=== PATIENT | female | born 1950 | race Caucasian/White ===

== ENCOUNTER 2022-03-01 02:49 | Inpatient (IN) ==
[2022-03-01] MEDS ORDERED: DILTIAZEM 25 MG/5 ML VIAL IV ONE ×2 (03:11→03:53)
[2022-03-01] MEDS ORDERED: LACTATED RINGERS 1,000 ML IV ONE (03:13)
--- NOTE | 2022-03-01 04:00 | XRay Report ---
CLINICAL INFORMATION: Chest pain COMPARISON: 10/20/2020 TECHNIQUE: Portable FINDINGS: The heart size, mediastinum and pulmonary vessels are unremarkable. The lungs are clear. There are no effusions. Moderate right diaphragm elevation is stable The bones and soft tissues are within normal limits. IMPRESSION: Chronic stable right diaphragm elevation. No acute disease Interpreted and Authenticated by: Lamine Arenas 03/01/22
[2022-03-01 04:21] LABS: Basophils # (Auto) 0.04 K/mcL (0.00-0.30); Basophils % (Auto) 0.3 % (0.0-2.0); Eosinophils # (Auto) 0.17 K/mcL (0.00-0.70); Eosinophils % (Auto) 1.4 % (0.0-7.0); Hematocrit 37.4 % (34.1-44.9); Hemoglobin 13.2 g/dL (11.2-15.7); Lymphocytes # (Auto) 2.38 K/mcL (1.50-4.80); Lymphocytes % (Auto) 19.5 % (15.5-49.0); Mean Cell Volume 91.7 fL (80.0-100.0); Mean Corpuscular HGB Conc 35.3 g/dL (31.0-36.0); Mean Platelet Volume 12.2 fL (7.4-10.4); Monocytes # (Auto) 1.02 K/mcL (0.10-0.90); Monocytes % (Auto) 8.3 % (1.0-12.0); Neutrophils % (Auto) 70.5 % (38.0-78.0); Platelet Count 240 K/mcL (140-440); RBC 4.08 M/mcL (3.59-5.38); Red Cell Distribution Width 11.8 % (11.5-14.5); WBC 12.2 K/mcL (4.5-11.0)
[2022-03-01] MEDS ORDERED: DILTIAZEM 125 MG in DEXTROSE 5% IN WATER 100 ML IV SCH (04:30)
[2022-03-01 04:42] LABS: ALT/SGPT 30 U/L (<40); AST/SGOT 21 U/L (<32); Albumin 4.6 gm/dL (3.2-5.2); Albumin/Globulin Ratio 1.5 (1.0-2.3); Alkaline Phosphatase 111 U/L (39-117); Bilirubin,Total 0.7 mg/dL (0.1-1.0); Blood Urea Nitrogen 15 mg/dL (8-23); Calcium 10.6 mg/dL (8.6-10.4); Carbon Dioxide 24 mmol/L (22-30); Chloride 92 mmol/L (96-108); Globulin 3.1 gm/dL (2.2-3.7); Glomerular Filtration Rate 86; Glucose 207 mg/dL (70-105)
--- NOTE | 2022-03-01 06:25 | Emergency Department Note ---
Arrhythmia/Palpitations HPI General Chief Complaint: Arrhythmia/Palpitations Stated Complaint: tachycardia Time Seen by Provider: 03/01/22 02:54 Source: patient Mode of arrival: ambulatory Limitations: no limitations History of Present Illness HPI Narrative: Narrative: 72-year-old female with a history of coronary artery disease status post 3 stents in the past, mild mitral valve prolapse, hypertension, diabetes, hyperlipidemia presenting to the ED with onset of palpitations that started earlier this evening. Noticed on her watch that her heart rate was around 150s 160s. Associated with slight chest discomfort no shortness of breath. She has what sounds like 1 or 2 episodes of paroxysmal A. fib many years ago, none since. She is not on any type of anticoagulation or rate control medication. No history of DVT or PE no recent medication changes, no recent travel, surgery, immobilization or leg swelling. Of note she is scheduled to undergo a elective cholecystectomy later today with Dr. Deleon due to what sounds like biliary colic. She has been n.p.o. since earlier tonight. Is admittedly mildly anxious in regards to this upcoming procedure. No history of thyroid disease, no other complaints Related Data Home Medications Medication Instructions Recorded Confirmed Leg Cramp med 1 tab PO ONCE PRN 09/30/17 02/25/22 vitamin B complex (B See Rx Instructions PO QDAY 05/14/18 02/25/22 Complex-Vitamin B12) aspirin 81 mg tablet,delayed 81 mg PO QDAY 11/18/18 02/25/22 release nitroglycerin 0.4 mg sublingual 0.4 mg SUBLINGUAL Q5-15M PRN 11/18/18 02/25/22 tablet amlodipine 5 mg tablet 5 mg PO QPM tab 12/07/18 02/25/22 vitamin E (dl, acetate) 180 mg See Rx Instructions PO BID cap 12/07/18 02/25/22 (400 unit) capsule cholecalciferol (vitamin D3) 50 50 mcg PO QDAY cap 03/21/20 02/25/22 mcg (2,000 unit) capsule diphenhydramine HCl 25 mg tablet 25 mg PO Q4H PRN tab 03/21/20 02/25/22 (Allergy Medicine) coenzyme Q10 1 dose PO DAILY 06/26/20 02/25/22 fish, borage, flaxseed oils-omega 1 cap PO BID cap 06/26/20 02/25/22 3,6,9 comb no.1 1,200 mg capsule atorvastatin 80 mg tablet 40 mg PO HS tab 11/21/20 02/25/22 oxygen 12/31/21 02/18/22 hydrochlorothiazide 12.5 mg tablet 12.5 mg PO QDAY 01/15/22 02/25/22 irbesartan 300 mg tablet 300 mg PO QDAY 01/15/22 02/25/22 Previous Rx's Medication Instructions Recorded epinephrine 0.3 mg/0.3 mL 0.3 mg (0.3 mL) IM ONCE PRN #2 each 11/18/18 injection, auto-injector propranolol 80 mg capsule,24 80 mg PO QDAY #90 cap 11/18/18 hr,extended release glimepiride 4 mg tablet 4 mg PO BID #180 tab 06/12/21 lancets 30 gauge (Easy Comfort #100 each 01/28/22 Lancets) Contour Next Test Strips (blood #200 each NS 01/31/22 sugar diagnostic) diazepam 5 mg tablet 5 mg PO BID PRN #60 tab 02/13/22 Allergies Allergy/AdvReac Type Severity Reaction Status Date / Time SURESH Inhibitors Allergy Severe Angioedema Verified 02/25/22 15:18 canagliflozin [From Invokana] Allergy Severe Difficulty Verified 02/25/22 15:18 Breathing egg Allergy Severe Anaphylaxis Verified 02/25/22 15:18 Penicillins Allergy Severe Anaphylaxis Verified 02/25/22 15:18 Procaine [From Novocain] Allergy Severe Anaphylaxis Verified 02/25/22 15:18 bee venom protein (honey bee) AdvReac Severe Anaphylaxis Verified 02/25/22 15:18 levofloxacin AdvReac Severe Decreased Verified 02/25/22 15:18 oxygen 60%, diarrhea, headache, dizziness cigarette smoke AdvReac Intermediate Difficulty Verified 02/25/22 15:18 Swallowing poultry Allergy Severe Anaphylaxis Uncoded 02/25/22 15:18 Metformin ER Allergy Intermediate Agitated Uncoded 02/25/22 15:18 Smoke AdvReac Intermediate Wheezing/Co Uncoded 02/18/22 13:18 ughing Review of Systems ROS ROS Narrative: Narrative: All systems ED: reviewed and negative except as stated. PFS Narrative Patient History Narrative: Narrative: Medical/Surgical/Family History All Active Problems (Updated 03/01/22 @ 06:25 by Luca Mancilla DO) Atrial fibrillation with rapid ventricular response (Acute) Nocturnal hypoxemia (Acute) Acute UTI (urinary tract infection) (Acute) Shortness of breath (Acute) Hypoxia (Acute) Recurrent biliary colic (Chronic) Medicare annual wellness visit, initial (Acute) Chest pain (Acute) Anxiety about health (Chronic) Dizziness (Acute) Diaphragmatic paresis (Chronic) Hypersomnia (Acute) Dyspnea (Chronic) Coronary artery disease (Chronic) Vitamin D deficiency, unspecified (Chronic) Other specified disorders of bone density and structure, multiple sites (Ch ronic) Patient's noncompliance with other medical treatment and regimen (Chronic) Body mass index 32.0-32.9, adult (Chronic) Generalized anxiety disorder (Chronic) Hay fever (Chronic) Kidney disease (Chronic ~1972) Anemia (Chronic ~1959) Seizures (Chronic ~1979) Back problem (Chronic ~1991) Mitral regurgitation (Chronic) Osteopenia (Chronic ~2014) Migraines (Chronic) Kidney stones (Chronic) Hyperlipidemia (Chronic) Hypertension, essential (Chronic) Mitral valve prolapse (Chronic) DMII (diabetes mellitus, type 2) (Chronic ~2012) Medical History (Updated 03/01/22 @ 06:25 by Luca Mancilla DO) Anemia (~1959) Ankle fracture, left (12/19/10) due to fall Ankle fracture, right (12/19/10) due to fall Back problem (~1991) Body mass index 32.0-32.9, adult Bronchitis (~1959) Cervical cancer Stage 2; patient declines further pelvic examination and Pap Chest pain has episodes of chest pain once every three months, radiate to left jaw and left arm; previous cardiac workup negative Improved with alprazolam Coronary artery disease Status post stenting x3 December 2017. Increase Lipitor to 80 mg daily to achieve goal LDL of less than 70 Continue baby aspirin daily Follows with cardiology. Daytime sleepiness Diaphragmatic paresis Demonstrated on fluoroscopy of diaphragm 11/13/2018. Causes right-sided scapular pain, for which she takes diazepam as needed DMII (diabetes mellitus, type 2) (~2012) Dyspnea Improved since ER visit. She has albuterol inhaler which is helpful as needed. May be related to biliary colic Encounter for general adult medical examination with abnormal findings Encounter for screening for other disorder Encounter for screening mammogram for malignant neoplasm of breast Fall (2015) Shattered left wrist Fall (12/19/10) Left ankle fracture & shattered right ankle Fracture of wrist Generalized anxiety disorder Hay fever Hives Hyperlipidemia Well-controlled on Lipitor 40 mg daily. Continue current dose. No myalgias. She is [id number] between 40 and 80 mg, so will be consistent with 40 mg and recheck lipids in 3 months. Hypersomnia Hypertension, essential Kidney disease (~1972) Kidney stones x2 in her 20s; cut dairy out of her diet, no problems since that time Left wrist fracture (2015) due to fall Measles (~1953) Medicare annual wellness visit, initial Migraines during teen years & into her 20's; now has visual changes, uses biofeedback to prevent getting to full blown migraine Mitral regurgitation mild Mitral valve prolapse diagnosed in her late 20s; associated with mild regurg Mumps (~1957) Osteopenia (~2014) Lumbar spine T score -2.5, which is on the borderline for osteoporosis. Other specified disorders of bone density and structure, multiple sites Patient's noncompliance with other medical treatment and regimen Personal history of malignant neoplasm of cervix uteri PNA (pneumonia) (~1948) Polio (~1951) Seizures (~1979) Type 2 diabetes mellitus with hyperglycemia Vitamin D deficiency, unspecified Continue vitamin D3 to 2000 units daily Surgical History History of artificial lens replacement History of open reduction and internal fixation (ORIF) procedure (~2015) 2016 Shattered left wrist; Dr. Castrejon History of open reduction and internal fixation (ORIF) procedure (12/19/10) 12/19/2010 Fractured left ankle & shattered right ankle; Dr. Yeboah Hx of cataract surgery 2007 Bilateral Hx of tonsillectomy 1961 S/P coronary artery stent placement patient stated angiogram and 3 stents placed 2018. [facility] Family History Father , from stroke at 80 years Arthritis Diabetes Hypertension, essential Stroke, Onset Age: 80 Anemia Heart disease Migraine Mother , 77 years of age, secondary to complications from AAA Arthritis Thyroid disease Aortic aneurysm Gallbladder disease Mitral valve prolapse Heart disease Brother Skin cancer Juvenile rheumatoid arthritis Coronary artery disease FH: coronary artery bypass surgery Family history of rheumatic fever Sister Arthritis Hypertension, essential Grandfather Paternal & Maternal Stroke Paternal Grandmother Paternal & Maternal Stroke Paternal Family/Other Mitral valve prolapse Sibling, unspecified History of appendectomy Sibling, unspecified Asthma Child, unspecified Migraine Child, unspecified Social History Smoking Status: Never smoker Alcohol Intake Frequency: a few times a month Substance Use: other Exam Narrative Narrative: Narrative: Constitutional: normally developed, slightly anxious Head: Normocephalic, atraumatic, Eyes: No Icterus, ENT: Slightly dry mucus membranes, Neck: Supple, Cardiac: Tachycardic irregularly irregular heart sounds, palpable radial pulses, no peripheral edema. Well perfused Pulmonary: Normal respiratory effort. Breath sounds clear, no wheeze, rhonchi, rales, Gastrointestinal: Abdomen soft, non-distended, non-tender, Musculoskeletal: No gross deformities, well perfused Skin: warm, dry Neuro: Alert and oriented. General Limitations: no limitations Course Vital Signs Vital signs: Vital Signs Temperature 36.6 C 03/01/22 02:50 Pulse Rate 148 H 03/01/22 02:50 Respiratory Rate 18 03/01/22 02:50 Blood Pressure 153/89 03/01/22 02:50 Pulse Oximetry (%) 97 03/01/22 02:50 Temperature 36.6 C 03/01/22 02:50 Pulse Rate 104 H 03/01/22 06:01 Respiratory Rate 24 H 03/01/22 03:07 Blood Pressure 133/91 03/01/22 06:01 Pulse Oximetry (%) 96 03/01/22 06:01 MDM MDM Narrative Medical decision making narrative: Narrative: 72-year-old presents in what appears to be A. fib with RVR blood pressure stable her main complaint is palpitations slight chest discomfort no significant dyspnea. Is started on IV fluids placed on library monitor work-up is obtained Twelve-lead EKG per my interpretation appears to show A. fib with RVR heart rate 156 QTC within normal no STEMI criteria, some repolarization abnormality likely rate related demand Patient is given initial 20 mg IV Cardizem for rate control CBC mild leukocytosis 12.2 Electrolytes low normal sodium and chloride 132/92 potassium is normal Troponin is negative TSH is normal Chest x-ray per my interpretation no acute findings chronically elevated right diaphragm Reevaluation initial rate control did help but heart rate is going back up was given a second bolus of Cardizem 25 mg again with initial rate control however heart rate is still returning slightly above 100 we will start her on Cardizem infusion. Will be admitted for further management On reevaluation with improved heart rate control patient feels quite well. Repeat EKG following rate control shows A. fib heart rate 84 QTc within normal, no acute ischemia noted Spoke with hospitalist who accepts admission; requested 1mg/kg Lovenox for anticoagulation, which was given. Patient agreeable to plan Critical Care Time Total CriticalCare time was 40 minutes, excluding separately reportable procedures. There was a high probability of clinically significant/life threatening deterioration in the patient's condition which required my urgent intervention. Lab Data Result diagrams: 03/01/22 03:51 03/01/22 03:51 Labs: Lab Results 03/01/22 03/01/22 03/01/22 Range/Units 03:51 03:51 03:51 WBC 12.2 H (4.5-11.0) K/mcL RBC 4.08 (3.59-5.38) M/mcL Hgb 13.2 (11.2-15.7) g/dL Hct 37.4 (34.1-44.9) % MCV 91.7 (80.0-100.0) fL MCH 32.4 (26.0-34.0) pg MCHC 35.3 (31.0-36.0) g/dL RDW 11.8 (11.5-14.5) % Plt Count 240 (140-440) K/mcL MPV 12.2 H (7.4-10.4) fL Neut % (Auto) 70.5 (38.0-78.0) % Lymph % (Auto) 19.5 (15.5-49.0) % Navarro % (Auto) 8.3 (1.0-12.0) % Eos % (Auto) 1.4 (0.0-7.0) % Baso % (Auto) 0.3 (0.0-2.0) % Lymph # (Auto) 2.38 (1.50-4.80) K/mcL Navarro # (Auto) 1.02 H (0.10-0.90) K/mcL Eos # (Auto) 0.17 (0.00-0.70) K/mcL Baso # (Auto) 0.04 (0.00-0.30) K/mcL Absolute Neutrophils 8.62 H (1.80-8.00) K/mcL Sodium 132 L (133-145) mmol/L Potassium 3.4 (3.3-5.1) mmol/L Chloride 92 L (96-108) mmol/L Carbon Dioxide 24 (22-30) mmol/L Anion Gap 16.0 (8.0-16.0) BUN 15 (8-23) mg/dL Creatinine 0.7 (0.6-1.1) mg/dL GFR Calculation 86 Glucose 207 H (70-105) mg/dL Calcium 10.6 H (8.6-10.4) mg/dL Total Bilirubin 0.7 (0.1-1.0) mg/dL AST 21 (<32) U/L ALT 30 (<40) U/L Alkaline Phosphatase 111 (39-117) U/L Troponin T < 0.01 (<0.03) ng/mL Total Protein 7.7 (5.9-8.4) gm/dL Albumin 4.6 (3.2-5.2) gm/dL Globulin 3.1 (2.2-3.7) gm/dL Albumin/Globulin Ratio 1.5 (1.0-2.3) TSH (0.27-5.01) uIU/mL 03/01/22 Range/Units 03:51 WBC (4.5-11.0) K/mcL RBC (3.59-5.38) M/mcL Hgb (11.2-15.7) g/dL Hct (34.1-44.9) % MCV (80.0-100.0) fL MCH (26.0-34.0) pg MCHC (31.0-36.0) g/dL RDW (11.5-14.5) % Plt Count (140-440) K/mcL MPV (7.4-10.4) fL Neut % (Auto) (38.0-78.0) % Lymph % (Auto) (15.5-49.0) % Navarro % (Auto) (1.0-12.0) % Eos % (Auto) (0.0-7.0) % Baso % (Auto) (0.0-2.0) % Lymph # (Auto) (1.50-4.80) K/mcL Navarro # (Auto) (0.10-0.90) K/mcL Eos # (Auto) (0.00-0.70) K/mcL Baso # (Auto) (0.00-0.30) K/mcL Absolute Neutrophils (1.80-8.00) K/mcL Sodium (133-145) mmol/L Potassium (3.3-5.1) mmol/L Chloride (96-108) mmol/L Carbon Dioxide (22-30) mmol/L Anion Gap (8.0-16.0) BUN (8-23) mg/dL Creatinine (0.6-1.1) mg/dL GFR Calculation Glucose (70-105) mg/dL Calcium (8.6-10.4) mg/dL Total Bilirubin (0.1-1.0) mg/dL AST (<32) U/L ALT (<40) U/L Alkaline Phosphatase (39-117) U/L Troponin T (<0.03) ng/mL Total Protein (5.9-8.4) gm/dL Albumin (3.2-5.2) gm/dL Globulin (2.2-3.7) gm/dL Albumin/Globulin Ratio (1.0-2.3) TSH 2.20 (0.27-5.01) uIU/mL Discharge Plan Patient/Caregiver Discharge Instructions Pt seen by SADDLE CUTTER/PA only: No Clinical Impression: Atrial fibrillation with rapid ventricular response Patient Disposition: Xfer As Inpt ([facility]) Condition: Fair Follow up with: Lamine Medeiros DO [Primary Care Provider] - Prescriptions: No Action glimepiride 4 mg tablet 4 mg PO BID Qty: 180 3RF (DME) lancets [Easy Comfort Lancets] 30 gauge misc See Dose Instructions .ROUTE .MEDSUPPLY Qty: 100 12RF Dose Instruction: As directed Rx Instructions: As directed-test sugars twice daily (DME) Contour Next Test Strips Strip See Rx Instructions .ROUTE .MEDSUPPLY Qty: 200 3RF Rx Instructions: Use to test blood sugars twice daily. diazepam 5 mg tablet 5 mg PO BID PRN (Reason: noncardiac chest discomfort) Qty: 60 0RF Leg Cramp med 1 tab PO ONCE PRN (Reason: Pain) 0RF vitamin E (dl, acetate) 400 unit capsule See Rx Instructions PO BID 0RF Label Comments: 180mg am and pm Rx Instructions: 180mg am and pm amlodipine 5 mg tablet 5 mg PO QPM 0RF vitamin B complex [B Complex-Vitamin B12] tablet See Rx Instructions PO QDAY 0RF Label Comments: 5000mcg PO QDAY Rx Instructions: 5000mcg PO QDAY aspirin 81 mg tablet,delayed release (DR/EC) 81 mg PO QDAY 0RF nitroglycerin 0.4 mg tablet, sublingual 0.4 mg SUBLINGUAL Q5-15M PRN (Reason: Chest Pain) 0RF propranolol 80 mg capsule,extended release 24 hr 80 mg PO QDAY Qty: 90 4RF epinephrine 0.3 mg/0.3 mL auto-injector 0.3 mg IM ONCE PRN (Reason: Allergic Reaction) Qty: 2 0RF diphenhydramine HCl [Allergy Medicine] 25 mg tablet 25 mg PO Q4H PRN (Reason: Allergic Reaction) 0RF cholecalciferol (vitamin D3) 50 mcg (2,000 unit) capsule 50 mcg PO QDAY 0RF coenzyme Q10 1 dose PO DAILY 0RF fish,bora,flax oils-[id number] 1,200 mg capsule 1 cap PO BID 0RF atorvastatin 80 mg tablet 40 mg PO HS 0RF (DME) oxygen 0 .Route .MEDSUPPLY 0RF irbesartan 300 mg tablet 300 mg PO QDAY 0RF hydrochlorothiazide 12.5 mg tablet 12.5 mg PO QDAY 0RF Trulicity 1.5 mg/0.5 mL pen injector 0RF Rx Instructions: TAKES EVERY FRIDAY
[2022-03-01] MEDS ORDERED: ENOXAPARIN 80 MG/0.8 ML SYRINGE SQ ONE (06:46)
[2022-03-01] MEDS ORDERED: morphine 2 MG/ML VIAL IV PRN (06:47)
[2022-03-01] MEDS ORDERED: ONDANSETRON 4 MG/2 ML VIAL IV PRN ×2 (06:47→11:26)
[2022-03-01] MEDS ORDERED: LACTATED RINGERS 1,000 ML IV SCH (07:00)
[2022-03-01] MEDS ORDERED: DEXTROSE 31 GM ORAL.SUSP PO PRN (08:14)
[2022-03-01] MEDS ORDERED: DEXTROSE 50% 50 ML VIAL IV PRN (08:14)
[2022-03-01] MEDS ORDERED: METOPROLOL TARTRATE 5 MG/5 ML VIAL IV PRN (08:15)
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
[2022-03-01] MEDS ORDERED: DILTIAZEM 180 MG CAP.XL.24H PO SCH (09:00)
[2022-03-01] MEDS: DILTIAZEM 180 MG CAP.XL.24H PO SCH (09:48)
[2022-03-01] MEDS ORDERED: POTASSIUM CHLORIDE 20 MEQ TABLET PO ONE (10:15)
[2022-03-01] MEDS ORDERED: DILTIAZEM 125 MG in DEXTROSE 5% IN WATER 100 ML IV PRN (10:15)
[2022-03-01] MEDS: INSULIN LISPRO 1 UNIT/0.01 ML UNIT SQ SCH ×3 (10:36→20:56)
[2022-03-01] MEDS ORDERED: MAGNESIUM SULFATE 2 GM/50 ML BAG IV PRN (11:26)
[2022-03-01] MEDS ORDERED: POLYETHYLENE GLYCOL 3350 17 GM PACKET PO PRN (11:26)
[2022-03-01] MEDS ORDERED: ACETAMINOPHEN 325 MG TABLET PO PRN (11:26)
[2022-03-01] MEDS ORDERED: SENNOSIDES 1 TABLET PO PRN (11:26)
[2022-03-01] MEDS ORDERED: POTASSIUM CHLORIDE 20 MEQ TABLET PO PRN ×2 (11:26)
[2022-03-01] MEDS ORDERED: POTASSIUM CHLORIDE 40 MEQ in DEXTROSE 5% IN WATER 500 ML IV PRN (11:26)
[2022-03-01] MEDS ORDERED: NITROGLYCERIN 0.4 MG TAB.SUBL SL PRN (11:31)
[2022-03-01] MEDS ORDERED: DIAZEPAM 5 MG TABLET PO PRN (11:31)
[2022-03-01] MEDS ORDERED: NON FORMULARY MEDICATION 1 DOSE MISCELL (Epinephrine 0.3 mg/0.3 mL auto-injector) IM PRN (11:31)
[2022-03-01] MEDS ORDERED: OXYGEN 1 UNIT NARES PRN (11:32)
--- NOTE | 2022-03-01 11:36 | Discharge Summary ---
Discharge Provider Provider Patient information: Note initiated : 03/01/22 at 11:34 am Service Date, if different from initiated Date: [] Patient: Eve Reese 72 y/o F admitted on 03/01/22 for tachycardia. Chief Complaint: [] Date of admission: 03/01/22 07:38 Discharge date: 03/02/22 Primary care physician: Lamine Medeiros DO Consults: 03/01/22 Consult to Physician [CONS] Stat Comment: Consulting Provider: Albert Pinon Reason For Exam: Physician to Consult Discharge Meds Discharge Medications Home Medications Leg Cramp med 1 tab PO ONCE PRN 09/30/17 [History Confirmed 03/01/22 Last Taken Unknown] vitamin B complex (B Complex-Vitamin B12) See Rx Instructions PO QDAY 05/14/18 [History Confirmed 03/01/22 Last Taken 02/28/22 08:00] aspirin 81 mg tablet,delayed release 81 mg PO QHS 11/18/18 [History Confirmed 03/01/22 Last Taken 02/28/22 18:00] epinephrine 0.3 mg/0.3 mL injection, auto-injector 0.3 mg (0.3 mL) IM ONCE PRN #2 each 11/18/18 [Rx Confirmed 03/01/22 Last Taken Unknown] nitroglycerin 0.4 mg sublingual tablet 0.4 mg SUBLINGUAL Q5-15M PRN 11/18/18 [History Confirmed 03/01/22 Last Taken 10/22/20 15:10] amlodipine 5 mg tablet 5 mg PO QPM tab 12/07/18 [History Confirmed 03/01/22 Last Taken 02/28/22 18:00] vitamin E (dl, acetate) 180 mg (400 unit) capsule See Rx Instructions PO BID cap 12/07/18 [History Confirmed 03/01/22 Last Taken 02/28/22 18:00] cholecalciferol (vitamin D3) 50 mcg (2,000 unit) capsule 50 mcg PO QDAY cap 03/21/20 [History Confirmed 03/01/22 Last Taken 02/28/22 08:00] diphenhydramine HCl 25 mg tablet (Allergy Medicine) 25 mg PO Q4H PRN tab 03/21/20 [History Confirmed 03/01/22 Last Taken 02/28/22 15:00] coenzyme Q10 1 dose PO DAILY 06/26/20 [History Confirmed 03/01/22 Last Taken 02/28/22 08:00] fish, borage, flaxseed oils-omega 3,6,9 comb no.1 1,200 mg capsule 1 cap PO BID cap 06/26/20 [History Confirmed 03/01/22 Last Taken 02/28/22 18:00] atorvastatin 80 mg tablet 40 mg PO HS tab 11/21/20 [History Confirmed 03/01/22 Last Taken 02/28/22 18:00] glimepiride 4 mg tablet 4 mg PO BID #180 tab 06/12/21 [Rx Confirmed 03/01/22 Last Taken 02/28/22 18:00] oxygen 12/31/21 [History Confirmed 03/01/22 Last Taken Unknown] hydrochlorothiazide 12.5 mg tablet 12.5 mg PO QHS 01/15/22 [History Confirmed 03/01/22 Last Taken 02/28/22 18:00] irbesartan 300 mg tablet 300 mg PO QHS 01/15/22 [History Confirmed 03/01/22 Last Taken 02/28/22 18:00] lancets 30 gauge (Easy Comfort Lancets) #100 each 01/28/22 [Rx Confirmed 03/01/22 Last Taken Unknown] Contour Next Test Strips (blood sugar diagnostic) #200 each NS 01/31/22 [Rx Confirmed 03/01/22 Last Taken Unknown] diazepam 5 mg tablet 5 mg PO BID PRN #60 tab 02/13/22 [Rx Confirmed 03/01/22 Last Taken 02/28/22 18:00] apixaban 5 mg tablet (Eliquis) 5 mg PO BID #60 tab 03/01/22 [Rx Last Taken Unknown] propranolol 80 mg capsule,24 hr,extended release 80 mg PO QHS 03/01/22 [History Confirmed 03/01/22 Last Taken 02/28/22 18:00] diltiazem HCl 120 mg capsule,24 hr,extended release 120 mg PO QAM #30 cap 03/02/22 [Rx Last Taken Unknown] COURSE Hospital Course Hospital course: Chief Complaint: [] History of present illness: Ms. Reese is a 72 year old F Patient states that last night she developed palpitations and had some dizziness. Sound like she had an episode of this similar episode 1 or 2 times years ago. Not on any anticoagulation or rate controlling medications. Says she was diagnosed with mitral valve prolapse mild in her 20s and A. fib at the same time but has not had any issues since then that she is aware of. Denies chest pain or shortness of breath. No recent travel or medication changes. She was scheduled to undergo an elective cholecystectomy today with Dr. Deleon for biliary colic. She does have history of CAD with 3 stents. Has diabetes. Recommend the ED revealed a normal TSH and magnesium is pending. She is found to be in A. fib RVR versus flutter. She was put on diltiazem drip and converted at 6:50 this morning. She has slight leukocytosis but was afebrile. Mild hyponatremia. labs otherwise unremarkable. 03/02 Patient doing well. Sinus rhythm. Pulse rate was running in the high 50s last night and blood pressure was little soft around 100 colic. We will decrease diltiazem from 180 mg to 120 mg A: *Afib RVR: converted to sinus -CHADSVASC=6 -echo EF per report appears to be normal, awaiting official read by [facility] traw[facility] boatswain *CAD w/stents: *HTN/HLD: *Anxiety: *DM: A1c 7.9 *Obesity: *Biliary colic: Was scheduled for elective cholecystectomy today, will be postponed *Hyponatremia, Mild: P: -PO dilt -eliquis -echo pending -cont ASA/statin -cont norvasc/arb -f/u with Cardiology Discharge diagnosis: A. fib RVR Secondary discharge diagnosis: CAD hypertension anxiety diabetes obesity biliary colic Time Spent with Patient Time attestation: Total time spent providing and/or coordinating discharge services: Time spent: Greater than 30 minutes EXAM Constitutional Vitals: Temp Pulse Resp BP Pulse Ox 99.3 F H 73 17 123/55 96 03/01/22 08:02 03/01/22 09:32 03/01/22 09:32 03/01/22 09:32 03/01/22 09:32 Discharge Data Data Completed and Pending Labs on day of discharge: Labs from last 24 hours 03/01/22 03/01/22 03/01/22 06:50 06:50 03:51 WBC RBC Hgb Hct MCV MCH MCHC RDW Plt Count MPV Neut % (Auto) Lymph % (Auto) [place] % (Auto) Eos % (Auto) Baso % (Auto) Lymph # (Auto) [place] # (Auto) Eos # (Auto) Baso # (Auto) Absolute Neutrophils Sodium Potassium Chloride Carbon Dioxide Anion Gap BUN Creatinine GFR Calculation Glucose Calcium Magnesium 1.8 Total Bilirubin AST ALT Alkaline Phosphatase Troponin T < 0.01 Total Protein Albumin Globulin Albumin/Globulin Ratio TSH 2.20 03/01/22 03/01/22 03/01/22 03:51 03:51 03:51 WBC 12.2 H RBC 4.08 Hgb 13.2 Hct 37.4 MCV 91.7 MCH 32.4 MCHC 35.3 RDW 11.8 Plt Count 240 MPV 12.2 H Neut % (Auto) 70.5 Lymph % (Auto) 19.5 [place] % (Auto) 8.3 Eos % (Auto) 1.4 Baso % (Auto) 0.3 Lymph # (Auto) 2.38 [place] # (Auto) 1.02 H Eos # (Auto) 0.17 Baso # (Auto) 0.04 Absolute Neutrophils 8.62 H Sodium 132 L Potassium 3.4 Chloride 92 L Carbon Dioxide 24 Anion Gap 16.0 BUN 15 Creatinine 0.7 GFR Calculation 86 Glucose 207 H Calcium 10.6 H Magnesium Total Bilirubin 0.7 AST 21 ALT 30 Alkaline Phosphatase 111 Troponin T < 0.01 Total Protein 7.7 Albumin 4.6 Globulin 3.1 Albumin/Globulin Ratio 1.5 [facility] 03/01/22 03/01/22 03/01/22 03:46 03:46 03:46 WBC Pending RBC Pending Hgb Pending Hct Pending MCV Pending MCH Pending MCHC Pending RDW Pending Plt Count Pending MPV Pending Neut % (Auto) Pending Lymph % (Auto) [place] % (Auto) Eos % (Auto) Baso % (Auto) Lymph # (Auto) [place] # (Auto) Eos # (Auto) Baso # (Auto) Absolute Neutrophils Sodium Pending Potassium Pending Chloride Pending Carbon Dioxide Pending Anion Gap Pending BUN Pending Creatinine Pending GFR Calculation Pending Glucose Pending Calcium Pending Magnesium Total Bilirubin Pending AST Pending ALT Pending Alkaline Phosphatase Pending Troponin T Pending Total Protein Pending Albumin Pending Globulin Pending Albumin/Globulin Ratio Pending TSH Discharge Plan Patient/Caregiver Discharge Instructions Activity: increase activity as tolerated Diet: Consistent Carbohydrate Activity Restrictions/Additional Instructions: Follow-up with [facility] boatswain in 3 to 10 days for A. fib RVR and for evaluation prior to elective cholecystectomy by Dr. Deleon Prescriptions: New Eliquis 5 mg tablet 5 mg PO BID Qty: 60 0RF diltiazem HCl 120 mg capsule,extended release 24 hr 120 mg PO QAM Qty: 30 0RF Continued glimepiride 4 mg tablet 4 mg PO BID Qty: 180 3RF (DME) lancets [Easy Comfort Lancets] 30 gauge misc See Dose Instructions .ROUTE .MEDSUPPLY Qty: 100 12RF Dose Instruction: As directed Rx Instructions: As directed-test sugars twice daily (DME) Contour Next Test Strips Strip See Rx Instructions .ROUTE .MEDSUPPLY Qty: 200 3RF Rx Instructions: Use to test blood sugars twice daily. diazepam 5 mg tablet 5 mg PO BID PRN (Reason: noncardiac chest discomfort) Qty: 60 0RF Leg Cramp med 1 tab PO ONCE PRN (Reason: Pain) 0RF vitamin E (dl, acetate) 400 unit capsule See Rx Instructions PO BID 0RF Label Comments: 180mg am and pm Rx Instructions: 180mg am and pm amlodipine 5 mg tablet 5 mg PO QPM 0RF vitamin B complex [B Complex-Vitamin B12] tablet See Rx Instructions PO QDAY 0RF Label Comments: 5000mcg PO QDAY Rx Instructions: 5000mcg PO QDAY aspirin 81 mg tablet,delayed release (DR/EC) 81 mg PO QHS 0RF nitroglycerin 0.4 mg tablet, sublingual 0.4 mg SUBLINGUAL Q5-15M PRN (Reason: Chest Pain) 0RF epinephrine 0.3 mg/0.3 mL auto-injector 0.3 mg IM ONCE PRN (Reason: Allergic Reaction) Qty: 2 0RF diphenhydramine HCl [Allergy Medicine] 25 mg tablet 25 mg PO Q4H PRN (Reason: Allergic Reaction) 0RF cholecalciferol (vitamin D3) 50 mcg (2,000 unit) capsule 50 mcg PO QDAY 0RF coenzyme Q10 1 dose PO DAILY 0RF fish,bora,flax oils-om3,6,9no1 1,200 mg capsule 1 cap PO BID 0RF atorvastatin 80 mg tablet 40 mg PO HS 0RF (DME) oxygen 0 .Route .MEDSUPPLY 0RF Rx Instructions: 2 L NC for sleep as needed irbesartan 300 mg tablet 300 mg PO QHS 0RF hydrochlorothiazide 12.5 mg tablet 12.5 mg PO QHS 0RF Trulicity 1.5 mg/0.5 mL pen injector See Rx Instructions .ROUTE .COMPLEX 0RF Rx Instructions: 1.5 mg subcutaneously ;TAKES EVERY FRIDAY propranolol 80 mg capsule,extended release 24 hr 80 mg PO QHS 0RF Follow Up Plan Follow up with: Lamine Medeiros DO [Primary Care Provider] - Patient Disposition: Home, Self-Care Prognosis: Fair Overall status at discharge: patient is not back to baseline Discharge Orders: Discharge Order (Routine); Ordered 03/02/22 Ordered By: Albert Pinon
[2022-03-01] MEDS ORDERED: diphenhydrAMINE 25 MG CAPSULE PO PRN (11:37)
[2022-03-01] MEDS: 0.9 % SODIUM CHLORIDE 10 ML SYRINGE IV SCH ×2 (13:17→20:56)
[2022-03-01] MEDS: GLIMEPIRIDE 2 MG TABLET PO SCH (17:04)
[2022-03-01] MEDS: APIXABAN 5 MG TABLET PO SCH (20:56)
[2022-03-01] MEDS ORDERED: amLODIPine 5 MG TABLET PO SCH (21:00)
[2022-03-01] MEDS ORDERED: ASPIRIN 81 MG TAB.CHEW PO SCH (21:00)
[2022-03-01] MEDS ORDERED: PROPRANOLOL 60 MG CAP.XL.24H PO SCH (21:00)
[2022-03-01] MEDS ORDERED: ATORVASTATIN 40 MG TABLET PO SCH (21:00)
[2022-03-01] MEDS ORDERED: LOSARTAN 50 MG TABLET PO SCH (21:00)
[2022-03-02] MEDS: 0.9 % SODIUM CHLORIDE 10 ML SYRINGE IV SCH (05:35)
[2022-03-02 06:47] LABS: Basophils # (Auto) 0.03 K/mcL (0.00-0.30); Basophils % (Auto) 0.5 % (0.0-2.0); Eosinophils # (Auto) 0.12 K/mcL (0.00-0.70); Eosinophils % (Auto) 1.8 % (0.0-7.0); Hematocrit 34.2 % (34.1-44.9); Hemoglobin 11.3 g/dL (11.2-15.7); Lymphocytes # (Auto) 2.17 K/mcL (1.50-4.80); Lymphocytes % (Auto) 32.7 % (15.5-49.0); Mean Cell Volume 96.3 fL (80.0-100.0); Mean Platelet Volume 10.6 fL (7.4-10.4); Monocytes # (Auto) 0.63 K/mcL (0.10-0.90); Monocytes % (Auto) 9.5 % (1.0-12.0); Neutrophils % (Auto) 55.5 % (38.0-78.0); Platelet Count 271 K/mcL (140-440); RBC 3.55 M/mcL (3.59-5.38); Red Cell Distribution Width 12.1 % (11.5-14.5); WBC 6.6 K/mcL (4.5-11.0)
[2022-03-02 07:22] LABS: ALT/SGPT 20 U/L (<40); AST/SGOT 16 U/L (<32); Albumin 3.7 gm/dL (3.2-5.2); Albumin/Globulin Ratio 1.4 (1.0-2.3); Alkaline Phosphatase 89 U/L (39-117); Bilirubin,Direct < 0.2 mg/dL (0-0.3); Bilirubin,Total 0.9 mg/dL (0.1-1.0); Blood Urea Nitrogen 8 mg/dL (8-23); Calcium 9.4 mg/dL (8.6-10.4); Carbon Dioxide 24 mmol/L (22-30); Chloride 98 mmol/L (96-108); Globulin 2.7 gm/dL (2.2-3.7); Glomerular Filtration Rate 96; Glucose 108 mg/dL (70-105); Lactate Dehydrogenase 172 U/L (135-225); Phosphorous 3.6 mg/dL (2.5-4.5); Triglycerides 209 mg/dL (<150); Uric Acid 3.5 mg/dL (2.5-8.0)
[2022-03-02] MEDS: INSULIN LISPRO 1 UNIT/0.01 ML UNIT SQ SCH (07:56)
[2022-03-02] MEDS: GLIMEPIRIDE 2 MG TABLET PO SCH (08:16)
[2022-03-02] MEDS: APIXABAN 5 MG TABLET PO SCH (08:17)
[2022-03-02] MEDS: DILTIAZEM 180 MG CAP.XL.24H PO SCH (08:17)
--- NOTE | 2022-03-02 08:21 | EKG ---
[facility] Test Date: 2022-03-01 Pat Name: Eve Reese Department: ICU Room: 120B Gender: Female Model Builder: : 1950 Requested By: Albert Pinon Order Number: [id number] Reading MD: Ab Travis Measurements Intervals [place] Rate: 74 P: 37 [place]: 175 QRS: -3 QRSD: 88 T: 18 QT: 353 QTc: 392 Interpretive Statements Sinus rhythm Low voltage, precordial leads Borderline T abnormalities, anterior leads Baseline wander in lead(s) V3 Electronically Signed On 03-02-2022 8:21:00 PDT by Ab Travis /store/[email or web address]/[id number]
--- NOTE | 2022-03-02 08:21 | EKG ---
[facility] Test Date: 2022-03-01 Pat Name: Eve Reese Department: ED Room: Gender: Female Medical Claims Representative: : 1950 Requested By: Luca Mancilla Order Number: [id number] Reading MD: Ab Travis Measurements Intervals [place] Rate: 156 P: [place]: QRS: 15 QRSD: 71 T: 225 QT: 240 QTc: 387 Interpretive Statements Atrial fibrillation with rapid V-rate Low voltage, precordial leads Repolarization abnormality, prob rate related Electronically Signed On 03-02-2022 8:20:48 PDT by Ab Travis /store/M0/[id number]
--- NOTE | 2022-03-02 08:21 | EKG ---
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
[2022-03-02] MEDS ORDERED: DILTIAZEM 120 MG CAP.XL.24H PO SCH (09:00)
== END 2022-03-02 10:53 | disposition home or self-care (01) | DRG 309 ==
LOC: ED 02:49 → ICU 07:38
PROVIDERS: ADMIT Internal Medicine; ATTEND Internal Medicine